=== PATIENT | female | born 1970 | race American Indian/Alaskan Native ===

== ENCOUNTER 2017-04-15 15:29 | Emergency (ER) | payer OTHER ==
--- NOTE | 2017-04-15 17:04 | XRay Report ---
FINAL REPORT EXAM: XR CHEST ROUTINE 2V HISTORY: cough TECHNIQUE: Two view chest PA and lateral PRIORS: None. FINDINGS: Cardiac and mediastinal contours are unremarkable. No focal pulmonary infiltrate is identified. No pleural fluid collection seen. Pulmonary vasculature is unremarkable. IMPRESSION: Negative two-view chest
[2017-04-15 17:53] LABS: Basophils % (Auto) 0.7 % (0.0-1.8); Eosinophils # (Auto) 0.1 K/mm3 (0.0-0.4); Eosinophils % (Auto) 3.1 % (0.0-4.3); Hematocrit 41.8 % (30.3-42.9); Hemoglobin 13.8 gm/dl (10.1-14.3); Lymphocytes # (Auto) 0.7 K/mm3 (1.2-5.4); Lymphocytes % (Auto) 16.2 % (13.4-35.0); Mean Corpuscular HGB Conc 33 % (30-34); Mean Corpuscular Hemoglobin 31 pg (28-32); Mean Corpuscular Volume 93 fl (79-97); Monocytes # (Auto) 0.4 K/mm3 (0.0-0.8); Monocytes % (Auto) 9.2 % (0.0-7.3); Platelet Count 158 K/mm3 (140-440); Red Blood Count 4.49 M/mm3 (3.65-5.03); Red Cell Distribution Width 13.5 % (13.2-15.2)
[2017-04-15 18:18] LABS: Alanine Aminotransferase 15 units/L (7-56); Albumin 4.4 g/dL (3.9-5); BUN/Creatinine Ratio 19; Blood Urea Nitrogen 13 mg/dL (7-17); Calcium 9.2 mg/dL (8.4-10.2); Hemolysis Index 5
[2017-04-16 00:30] VITALS: BP 153/98
[2017-04-16] MEDS ORDERED: MOTRIN PO ONE (00:34)
[2017-04-16] MEDS ORDERED: DELTASONE PO ONE (02:04)
[2017-04-16] MEDS ORDERED: DUONEB *Not for PRN Use IH ONE (02:04)
--- NOTE | 2017-04-16 02:26 | Emergency Department Report ---
HPI - General Chief Complaint: Upper Respiratory Infection Time Seen by Provider: 04/16/17 02:03 - HPI HPI: This is a 47 year-old female presents to the emergency department with a complaint of a few weeks of a productive Cough. This is associated with some intermittent fevers. More recently she has started having some wheezing but she denies any chest pain, shortness of breath, nausea, vomiting, abdominal pain. She has tried Robitussin-DM, Jordyn-[place] cold plus, and other [id number] medications without much relief. She has a past medical history of HIV for which she follows with Dr. duffy. She says her last CD4 count was undetectable. No recent travel or sick contacts at home. ED Past Medical Hx - Past Medical History Hx HIV: Yes (undetectable and compliant with meds.) - Surgical History Additional Surgical History: breast reduction - Social History Smoking Status: Never Smoker Substance Use Type: Alcohol - Medications Home Medications: Home Medications Medication Instructions Recorded Confirmed Last Taken Type ALBUTEROL Inhaler [ProAir HFA 2 puff IH QID PRN #1 inhalation 04/16/17 Unknown Rx Inhaler] guaiFENesin/CODEINE [Robitussin AC] 5 ml PO Q6H PRN #100 ml 04/16/17 Unknown Rx predniSONE [Deltasone] 20 mg PO QDAY #5 tab 04/16/17 Unknown Rx ED Review of Systems ROS: Stated complaint: COUGH Other details as noted in HPI Comment: All other systems reviewed and negative Constitutional: fever (intermittent). denies: weakness Eyes: denies: eye pain, eye discharge, vision change ENT: denies: ear pain, throat pain Respiratory: cough, wheezing Cardiovascular: denies: chest pain, palpitations Gastrointestinal: denies: abdominal pain, nausea, diarrhea Genitourinary: denies: urgency, dysuria, discharge Musculoskeletal: denies: back pain, joint swelling, arthralgia Skin: denies: rash, lesions Neurological: denies: headache, weakness, paresthesias Physical Exam - Physical Exam Vital Signs: Vital Signs 04/15/17 04/16/17 16:23 00:28 Temperature 99.2 F 99.1 F Pulse Rate 98 H 90 Respiratory 20 18 Rate Blood Pressure 129/100 Blood Pressure 153/98 [Left] O2 Sat by Pulse 99 100 Oximetry Physical Exam: GENERAL: The patient is well-developed well-nourished. HENT: Normocephalic. Atraumatic. Patient has moist mucous membranes. Oropharynx is clear. EYES: Extraocular motions are intact. Pupils equal reactive to light bilaterally. NECK: Supple. Trachea is midline. CHEST/LUNGS: There is some mild wheezing throughout the chest. A dry cough heard during examination. No tachypnea or accessory muscle use.. There is no respiratory distress noted. HEART/CARDIOVASCULAR: Regular. There is no tachycardia. There is no murmur. ABDOMEN: Abdomen is soft, nontender. Patient has normal bowel sounds. There is no abdominal distention. SKIN: Skin is warm and dry. NEURO: The patient is awake, alert, and oriented. The patient is cooperative. The patient has no focal neurologic deficits. The patient has normal speech. MUSCULOSKELETAL: There is no tenderness or deformity. There is no limitation range of motion. There is no evidence of acute injury. ED Course Vital Signs 04/15/17 04/16/17 16:23 00:28 Temperature 99.2 F 99.1 F Pulse Rate 98 H 90 Respiratory 20 18 Rate Blood Pressure 129/100 Blood Pressure 153/98 [Left] O2 Sat by Pulse 99 100 Oximetry ED Medical Decision Making - Lab Data Result diagrams: 04/15/17 17:14 04/15/17 17:14 - Radiology Data Radiology results: image reviewed interpreted by me: Chest x-ray does not show any acute process. There are no pleural effusions, obvious pneumonia and there is no pneumothorax. - Medical Decision Making The patient presents with a few weeks of a cough, some intermittent fevers. However her vital signs are stable and there is no fever here and she has not taken any recent antipyretics. On examination she has some wheezing but does not appear in any respiratory distress. Chest x-ray does not show any pneumonia , pneumothorax, pleural effusions. Influenza is negative. Labs are unremarkable including no leukocytosis, electrolyte abnormalities, renal insufficiency or glucose abnormalities. She was given a dose of steroids, Robitussin-AC and a breathing treatment. Upon reevaluation her wheezing has improved. She appears safe for discharge home. She's been encouraged to follow up with her PCP/infectious disease physician. She went home with steroids, Robitussin-AC and an albuterol inhaler. She will return to the ER with any worsening of her symptoms or any acute distress. - Differential Diagnosis pneumonia, URI, bronchitis, asthma Critical Care Time: No Critical care attestation.: If time is entered above; I have spent that time in minutes in the direct care of this critically ill patient, excluding procedure time. ED Disposition Clinical Impression: Bronchitis Upper respiratory infection Qualifiers: URI type: unspecified URI Qualified Code(s): J06.9 - Acute upper respiratory infection, unspecified Disposition: DC- TO HOME OR SELFCARE Is pt being admited?: No Condition: Stable Instructions: Upper Respiratory Infection (ED), Acute Bronchitis (ED) Additional Instructions: Please follow-up with your primary care physician in the next few days. Return to the emergency Department with any worsening of your symptoms or any acute distress. You have been prescribed a medication that is sedating and therefore should not be taken prior to driving, working, and responsible for children and in no way should be mixed with alcohol of any quantity. Prescriptions: ALBUTEROL Inhaler [ProAir HFA Inhaler] 2 puff IH QID PRN #1 inhalation PRN Reason: Shortness Of Breath guaiFENesin/CODEINE [Robitussin AC] 5 ml PO Q6H PRN #100 ml PRN Reason: Cough predniSONE [Deltasone] 20 mg PO QDAY #5 tab Referrals: PRIMARY CAREMD [Primary Care Provider] - 3-5 Days TIMMY DUFFY MD [Staff Physician] - 3-5 Days Forms: Accompanied Note, Work/School Release Form(ED) Time of Disposition: 03:29
== END 2017-04-16 03:40 | disposition home or self-care (01) ==
LOC: ED 15:29
DX: J40 Bronchitis, not specified as acute or chronic (principal); J06.9 Acute upper respiratory infection, unspecified
CPT/HCPCS: 36415; 71046; 80053; 85025; 87400; 99284; J7512